=== PATIENT | female | born 1995 | race Caucasian/White ===

== ENCOUNTER 2019-04-12 16:01 | Emergency (ER) | payer OTHER ==
[~2019-04-12] VITALS: Ht 175.3 cm; Wt 79.4 kg
[2019-04-12 16:18] LABS: URINE BILIRUBIN NEGATIVE (Negative); URINE BLOOD NEGATIVE (Negative); URINE CLARITY CLEAR; URINE COLOR YELLOW; URINE GLUCOSE-RANDOM* NEGATIVE (Negative); URINE KETONES NEGATIVE (Negative); URINE LEUKOCYTES-REFLEX NEGATIVE (Negative); URINE NITRITE-REFLEX NEGATIVE (Negative); URINE PROTEIN (DIPSTICK) NEGATIVE (Negative); URINE UROBILINOGEN 0.2 E.U./dl (0.2-1.0)
[2019-04-12] MEDS ORDERED: CELEXA40 MG PO (16:32)
[2019-04-12 18:03] LABS: ABSOLUTE NEUTROPHILS 8.5 thou/uL (1.4-8.2); BASOPHILS 0.3 % (0.0-2.0); EOSINOPHILS 0.1 % (0.0-3.0); HEMATOCRIT 41.9 % (37.0-47.0); HEMOGLOBIN 13.6 gm/dL (12.0-15.0); LYMPHOCYTES 10.4 % (24.0-44.0); MCH 28.7 pg (26.0-34.0); MCHC 32.4 g/dL (28.0-37.0); MCV 88.4 fL (80.0-100.0); MONOCYTES 4.3 % (1.0-8.0); PLATELET COUNT 165 thou/uL (150-400); POLYS 84.9 % (36.0-66.0); RBC 4.74 mil/uL (4.20-5.00); RDW 12.7 % (10.5-14.5)
[2019-04-12 18:15] LABS: CREATININE 0.6 mg/dL (0.6-1.0)
[2019-04-12 18:21] LABS: ALBUMIN 4.3 g/dL (3.4-5.0); TOTAL BILIRUBIN 0.4 mg/dL (<0.1-1.0); TOTAL PROTEIN 7.8 g/dL (6.4-8.2)
[2019-04-12] MEDS ORDERED: TORADOL 10 MG T10 MG PO ×3 (20:00→20:07)
[2019-04-12] MEDS ORDERED: ONDANSETRON HCL4 M2 PO ×3 (20:00→20:07)
[2019-04-12 20:26] VITALS: BP 124/70
== END 2019-04-12 20:15 | disposition home or self-care (01) ==
LOC: ER 16:01
PROVIDERS: Physician Assistant
DX: R10.32 Left lower quadrant pain (principal); R11.0 Nausea; F17.210 Nicotine dependence, cigarettes, uncomplicated; Z88.5 Allergy status to narcotic agent; Z88.6 Allergy status to analgesic agent; Z91.040 Latex allergy status